=== PATIENT | male | born 2000 | race African-American/Black ===

== ENCOUNTER 2023-03-06 23:09 | Emergency (ER) | payer OTHER ==
[2023-03-06 23:26] VITALS: BP 131/82; O2SAT 99
--- NOTE | 2023-03-06 23:49 | ED Physician Documentation ---
PD HPI HEENT - Stated complaint Stated Complaint: TOP LIP SWELLING - Chief complaint Chief Complaint: Heent - History obtained from History obtained from: Patient - Additional information Additional information: The patient comes to the emergency department with chief complaint of upper lip swelling that started this evening. He states he was lying in bed began to notice that his upper lip had become sore and puffy. He denies any extension of the swelling or pain into any other structures of his mouth or throat. He states that the area of swelling is localized to only part of his lip and the r est of his upper lip does not feel swollen. His lower lip also was not involved. Patient denies any fevers or chills. No upper respiratory symptoms. No itching or rash/urticaria. The patient is not known to be allergic to anything. He has never had this happen before. The patient denies any history of angioedema. He is not on any meds. No other complaints at this time. PD PAST MEDICAL HISTORY - Past Medical History Past Medical History: No Cardiovascular: None Respiratory: None Neuro: None Endocrine/Autoimmune: None GI: None : None HEENT: None Psych: None Musculoskeletal: None Derm: None - Past Surgical History Past Surgical History: No - Present Medications Home Medications: Ambulatory Orders Medication Instructions Recorded Confirmed No Known Home Medications 03/06/23 03/06/23 - Allergies Allergies/Adverse Reactions: Allergies Allergy/AdvReac Type Severity Reaction Status Date / Time No Known Drug Allergies Allergy Verified 03/06/23 23:24 - Social History Does the pt smoke?: No Smoking Status: Never smoker Does the pt drink ETOH?: Yes Does the pt have substance abuse?: No - Immunizations Immunizations are current?: Yes - POLST Patient has POLST: No PD ED PE NORMAL - Vitals Vital signs reviewed: Yes - General General: Alert and oriented X 3, No acute distress, Well developed/nourished - HEENT HEENT: Atraumatic, PERRL, EOMI, Moist mucous membranes, Pharynx benign, Other (Approximately 12 mm diameter rounded area of localized edema with centrally located small bulla. No mass, fluctuance, erythema, or induration. Entire lip is soft. No edema of any of the other oropharyngeal structures.) - Neck Neck: Supple, no meningeal sign - Respiratory Respiratory: No respiratory distress - Derm Derm: Normal color, Warm and dry, No rash - Extremities Extremities: No deformity - Neuro Neuro: Alert and oriented X 3, Other (Grossly intact) - Psych Psych: Normal mood, Normal affect Results - Vitals Vitals: Vital Signs - 24 hr 03/06/23 23:15 Temperature 37.1 C Heart Rate 67 Respiratory 16 Rate Blood Pressure 131/82 H O2 Saturation 99 Oxygen O2 Source Room air PD Medical Decision Making - ED course Complexity details: considered differential, d/w patient, d/w family ED course: I discussed with the patient and his significant other that at this point in time, the swelling is extremely localized and that the centrally located bulla raises suspicion for The early stages of cold sore development. There is no evidence of an abscess, and the patient does not have swelling of any other part of his mouth or throat. He has no urticaria to indicate allergic reaction, and has not had any exposures to anything in particular in the area of his lip. He is not aware of anything having bitten him, so although I cannot be entirely certain what caused the swelling and the bulla, I think the most likely cause at this point in time is a viral sore. We have discussed symptomatic management and the need for immediately return to the emergency department, should patient begin to notice swelling spreading to the other structures of his mouth and throat. Given the lack of evidence of an allergic reaction, I do not feel that steroids, Benadryl, or epinephrine are indicated, either. Departure - Departure Disposition: 01 Home, Self Care Clinical Impression: Lip swelling, Cold sore Condition: Stable Instructions: Cold Sore, ED Herpes Simplex Virus Type 1 Comments: While it is not exactly certain what has caused the localized swelling of your lip, you do have a blister that appears suspicious for a cold sore. This can be caused by activation of the herpes simplex 1 virus, which is often responsible for both cold sores and canker sores; however, there are other viruses that can either cause the sores or cause activation of a dormant herpes virus strain. For the most part, has to run its course and there is no direct treatment for it. You may apply Orajel or a similar numbing jelly to the area to help with the discomfort if you need. For now, there is no evidence of a bacterial infection, allergic reaction, or angioedema, a spontaneous severe swelling disorder. If you begin to notice swelling that is spreading through the structures of your mouth and throat, please return to the emergency department immediately.
== END 2023-03-06 23:52 | disposition home or self-care (01) ==
LOC: ED 23:09
DX: B00.1 Herpesviral vesicular dermatitis (principal)
CPT/HCPCS: 99281; 99283

== ENCOUNTER 2023-10-09 18:38 | Emergency (ER) | payer OTHER ==
[2023-10-09 19:13] LABS: BASOPHILS % (AUTO) 0.4 %; EOSINOPHILS # (AUTO) 0.2 10^3/uL (0.0-0.7); EOSINOPHILS % (AUTO) 3.2 %; HCT - HEMATOCRIT 43.5 % (42.0-52.0); HGB - HEMOGLOBIN 14.1 g/dL (14.0-18.0); LYMPHOCYTES # (AUTO) 1.6 10^3/uL (1.5-3.5); LYMPHOCYTES % (AUTO) 20.9 %; MEAN CORPUSCULAR HEMOGLOBIN 21.9 pg (27.0-31.0); MEAN CORPUSCULAR HGB CONC 32.4 g/dL (32.0-36.0); MEAN CORPUSCULAR VOLUME 67.5 fL (80.0-94.0); MEAN PLATELET VOLUME 9.7 fL (7.4-11.4); MONOCYTES # (AUTO) 0.8 10^3/uL (0.0-1.0); MONOCYTES % (AUTO) 10.6 %; NEUTROPHILS # (AUTO) 4.9 10^3/uL (1.5-6.6); NEUTROPHILS % (AUTO) 64.8 %; PLT - PLATELET COUNT 297 10^3/uL (130-450); RED BLOOD COUNT 6.44 10^6/uL (4.70-6.10); WHITE BLOOD COUNT 7.5 x10^3/uL (4.8-10.8)
[2023-10-09 19:22] LABS: SLIDE REVIEW? Indicated
[2023-10-09 19:28] LABS: ALBUMIN 4.7 g/dL (3.2-5.5); ALBUMIN/GLOBULIN RATIO 1.6 (1.0-2.2); BILIRUBIN,TOTAL 0.3 mg/dL (0.2-1.0); CALCIUM 10.5 mg/dL (8.5-10.3); CREATININE 0.9 mg/dL (0.6-1.3); TOTAL PROTEIN 7.6 g/dL (6.4-8.9)
[2023-10-09 19:32] LABS: TROPONIN I HIGH SENSITIVITY 3.8 ng/L (2.3-19.7)
[2023-10-09 19:33] LABS: RBC MORPHOLOGY (MULTIPLE) 1+ ANISOCYTOSIS (NORMAL)
[2023-10-09 19:34] LABS: PLATELET ESTIMATE, MANUAL NORMAL (130-450,000) (NORMAL); PLATELET MORPHOLOGY NORMAL APPEARANCE (NORMAL)
--- NOTE | 2023-10-09 19:53 | XRAY Report ---
PROCEDURE: Chest 1V INDICATIONS: Chest pain TECHNIQUE: One view of the chest was acquired. COMPARISON: None. FINDINGS: Surgical changes and devices: None. Lungs and pleura: No pleural effusions or pneumothorax. Lungs are clear. Mediastinum: Mediastinal contours appear normal. Heart size is normal. Bones and chest wall: No suspicious bony lesions. Overlying soft tissues appear unremarkable. IMPRESSION: No acute cardiopulmonary process. Reviewed by: Irwin Vee MD on 10/09/2023 7:51 PM PDT Approved by: Irwin Vee MD on 10/09/2023 7:51 PM PDT Station ID: [id number]
--- NOTE | 2023-10-09 21:39 | ED Physician Documentation ---
PD HPI CHEST PAIN - Stated complaint Stated Complaint: CHEST PX - Chief complaint Chief Complaint: Cardiac - Additional information Additional information: 22-year-old male presents emergency department for chest pain that started yesterday. Patient said he started to notice more persistent chest pain today specifically he feels it in his mid upper chest region with any cough or sneezing. He said that he had a couple episodes of shortness of breath sometimes at rest and sometimes with ambulation no recent fevers or chills and I asked him if he feels like he is coming down with something he says he does not now. No history of cardiac disease and no family history of cardiac disease no sudden cardiac arrest in his family. He has had no recent illnesses no known fevers or chills but has been noticing today more coughing and sneezing. No leg pain and no recent travel no testosterone or hormone use no unilateral leg swelling. PD PAST MEDICAL HISTORY - Past Medical History Past Medical History: Yes Cardiovascular: Hypertension Respiratory: None Neuro: None Endocrine/Autoimmune: None GI: None : None HEENT: None Psych: None Musculoskeletal: None Derm: None - Past Surgical History Past Surgical History: No - Present Medications Home Medications: Ambulatory Orders Medication Instructions Recorded Confirmed amLODIPine [Norvasc] 10 mg PO DAILY 10/09/23 10/09/23 - Allergies Allergies/Adverse Reactions: Allergies Allergy/AdvReac Type Severity Reaction Status Date / Time No Known Drug Allergies Allergy Verified 10/09/23 18:48 - Social History Does the pt smoke?: No Smoking Status: Never smoker Does the pt drink ETOH?: Yes Does the pt have substance abuse?: No - Immunizations Immunizations are current?: Yes - POLST Patient has POLST: No PD ED PE NORMAL - Vitals Vital signs reviewed: Yes - General General: Alert and oriented X 3, No acute distress, Well developed/nourished - HEENT HEENT: Atraumatic - Neck Neck: Supple, no meningeal sign - Cardiac Cardiac: No murmur, No gallop, Strong equal pulses, Other (Irregularly irregular) - Respiratory Respiratory: No respiratory distress, Clear bilaterally - Abdomen Abdomen: Normal bowel sounds, Soft, Non tender, No organomegaly - Derm Derm: Normal color, Warm and dry, No rash - Extremities Extremities: No edema, No calf tenderness / cord - Neuro Neuro: Alert and oriented X 3 Results - Vitals Vitals: Vital Signs - 24 hr 10/09/23 10/09/23 10/09/23 18:49 21:17 21:49 Temperature 36.9 C Heart Rate 66 75 76 Respiratory 18 16 16 Rate Blood Pressure 152/92 H 151/91 H 145/79 H O2 Saturation 100 98 99 Oxygen O2 Source Room air - EKG (time done) 1857 EKG releavant findings:: EKG personally interpreted by author of this note. Relevant findings are: Rate: Rate (enter#) (67) Rhythm: Other (sinus arrythmia) [place]: Normal Intervals: Normal [place] QRS: Normal, LVH Ischemia: Other (ST elevation on anterior leads) Computer interpretation: Agree with computer - Labs Labs: Laboratory Tests 10/09/23 10/09/23 10/09/23 19:05 19:05 21:45 WBC 7.5 RBC 6.44 H Hgb 14.1 Hct 43.5 MCV 67.5 L MCH 21.9 L MCHC 32.4 RDW 16.0 H Plt Count 297 MPV 9.7 Neut # (Auto) 4.9 Lymph # (Auto) 1.6 [place] # (Auto) 0.8 Eos # (Auto) 0.2 Baso # (Auto) 0.0 Absolute Nucleated RBC 0.00 Nucleated RBC % 0.0 Manual Slide Review Indicated Platelet Estimate NORMAL (130-450,000) Platelet Morphology NORMAL APPEARANCE RBC Morph Micro Appear 1+ ANISOCYTOSIS Sodium 137 Potassium 4.0 Chloride 100 L Carbon Dioxide 32 Anion Gap 5.0 L BUN 12 Creatinine 0.9 Estimated GFR (MDRD) 127 Glucose 90 Calcium 10.5 H Total Bilirubin 0.3 AST 30 ALT 33 Alkaline Phosphatase 70 Troponin I High Sens 3.8 Total Protein 7.6 Albumin 4.7 Globulin 2.9 Albumin/Globulin Ratio 1.6 Lipase 17 Nasal Adenovirus (PCR) NOT DETECTED Nasal B. parapertussis DNA (PCR) NOT DETECTED Nasal Coronavir 229E PCR NOT DETECTED Nasal Coronavir HKU1 PCR NOT DETECTED Nasal Coronavir NL63 PCR NOT DETECTED Nasal Coronavir OC43 PCR NOT DETECTED Nasal Enterovir/Rhinovir PCR DETECTED A Nasal Influenza B PCR NOT DETECTED Nasal Influenza A PCR NOT DETECTED Nasal Parainfluen 1 PCR NOT DETECTED Nasal Parainfluen 2 PCR NOT DETECTED Nasal Parainfluen 3 PCR NOT DETECTED Nasal Parainfluen 4 PCR NOT DETECTED Nasal RSV (PCR) NOT DETECTED Nasal B.pertussis DNA PCR NOT DETECTED Nasal C.pneumoniae (PCR) NOT DETECTED Lux Human Metapneumo PCR NOT DETECTED Nasal M.pneumoniae (PCR) NOT DETECTED Nasal SARS-CoV-2 (PCR) NOT DETECTED - Rads (name of study) Chest x-ray Relevant Findings:: Final report received, EMP independent interpretation of test, Other (No acute cardiopulmonary abnormalities) PD Medical Decision Making - ED course ED course: Exam without evidence of volume overload so doubt heart failure. EKG without signs of active ischemia. Given the timing of pain to ER presentation, single troponin Was negatived so doubt NSTEMI. Presentation not consistent with acute PE ( PERC negative), pneumothorax (not visualized on chest xr), thoracic aortic dissection, pericarditis, tamponade, pneumonia (no infectious symptoms, clear chest xr), myocarditis (no recent illness, neg trop). HEART score: 3 so discharge patient home with PCP follow up. Patient does have an appointment with cardiology follow-up on December 05. Patient ended up testing positive for rhinovirus and I do believe that he was experiencing costochondritis from his new symptom onset from his rhinovirus. He was informed of these findings and was relieved to hear of this. Departure - Departure Disposition: Home, Self Care Clinical Impression: Chest pain Instructions: ED Chest Pain Atypical Unkn Cause Comments: Thank you for trusting us with your care. We have evaluated you for your chest pain it sounds like your EKG was similar last time your evaluated at the [facility] and you have an appointment with cardiology in November. Your troponins are not elevated and we are not seeing any acute abnormalities in your labs. We have done a respiratory swab and I will call you with the results if they come back positive. If you feel worse in any way shape or form or your chest pain is not getting any better in the next couple days please come back to the emergency department for further evaluation. Forms: PCP List Discharge Date/Time: 10/09/23 21:49
[2023-10-09 21:54] VITALS: BP 145/79; O2SAT 99
[2023-10-09 22:44] LABS: B. PARAPERTUSSIS- RESP PCR PAN NOT DETECTED; B. PERTUSSIS- RESP PCR PANEL NOT DETECTED; C. PNEUMONIAE- RESP PCR PANEL NOT DETECTED; CORONAVIRUS 229E-RESP PCR NOT DETECTED; CORONAVIRUS HKU1-RESP PCR NOT DETECTED; CORONAVIRUS NL63-RESP PCR NOT DETECTED; CORONAVIRUS OC43-RESP PCR NOT DETECTED; HUMAN METAPNEUMOVIRUS NOT DETECTED; INFLUENZA A- RESP PCR PANEL NOT DETECTED; INFLUENZA B - RESP PCR PANEL NOT DETECTED; M. PNEUMONIAE- RESP PCR PANEL NOT DETECTED; PARAINFLUENZA VIRUS 1 NOT DETECTED; PARAINFLUENZA VIRUS 2 NOT DETECTED; PARAINFLUENZA VIRUS 3 NOT DETECTED; PARAINFLUENZA VIRUS 4 NOT DETECTED; RHINOVIRUS/ENTEROVIRUS DETECTED; RSV- RESP PCR PANEL NOT DETECTED; SARS-CoV-2 -RESP PCR PANEL NOT DETECTED
== END 2023-10-09 21:49 | disposition home or self-care (01) ==
LOC: ED 18:38
DX: R07.9 Chest pain, unspecified (principal); B34.8 Other viral infections of unspecified site
CPT/HCPCS: 36415; 80053; 83690; 84484; 85025; 87633; 93005; 99283; 99284